=== PATIENT | female | born 1990 | race Caucasian/White ===

== ENCOUNTER 2017-11-27 08:42 | Emergency (ER) | payer SELFPAY ==
[2017-11-27 09:07] VITALS: BP 159/100
--- NOTE | 2017-11-27 09:35 | EDM.PDOC ---
ED HPI GENERAL MEDICAL PROBLEM - General Chief Complaint: Upper Extremity Injury/Pain Stated Complaint: RIGHT THUMB SWOLLEN Time Seen by Provider: 11/27/17 09:02 - History of Present Illness INITIAL COMMENTS - FREE TEXT/NARRATIVE: HISTORY AND PHYSICAL: History of present illness: The patient is a 27-year-old female who presents with 2 complaints regarding her hands; the first is that all the tips of her fingers are dry scaly and red and feel uncomfortable and the second is that she thinks that she has some fluid at the base of her right thumbnail that started last night. The patient states that she does bite her fingernails but not to an extreme and has no systemic complaints of fever chills nausea vomiting or diarrhea. She denies . She says she has not manipulated any of her fingers. She says that in the past she has had an episode of a contact reaction and did not realize that she had a latex allergy and I reviewed that chart of a urine half ago. She said she received prednisone at that time and it seemed to improve symptoms. She does not work with chemicals and has not been around any new products that she is aware of. She says that she went on the Internet and she looked things up and she is concerned about infection. Review of systems: As per history of present illness and below otherwise all systems reviewed and negative. Past medical history: As per history of present illness and as reviewed below otherwise noncontributory. Surgical history: As per history of present illness and as reviewed below otherwise noncontributory. Social history: No reported history of drug or alcohol abuse. Family history: As per history of present illness and as reviewed below otherwise noncontributory. Physical exam: General: Well-developed well-nourished female who is nontoxic and vital signs are reviewed by me HEENT: Atraumatic, normocephalic, negative for conjunctival pallor or scleral icterus, mucous membranes moist, throat clear, neck supple, nontender, trachea midline. Lungs: Clear to auscultation, breath sounds equal bilaterally, chest nontender. Heart: S1S2, regular rate and rhythm no overt murmurs Abdomen: Soft, nondistended, nontender. NABS Pelvis: Deferred Genitourinary: Deferred. Rectal: Deferred. Extremities: Atraumatic with full range of motion of all extremities with the exception of the distal calyces of all digits. At the soft tissue of the chente on all fingers there is diffuse ill-defined erythema and dry scaly skin and some irregular fingernails are seen. At the ulnar base of the right fingernail there is a small pinpoint area of fluctuance and tenderness with some erythema which does not involve the nailbed and there is no diffuse soft tissue swelling or erythema. The patient has full range of motion of all of the extremities and good cap refill. Neurovascular unremarkable. Neuro: Awake, alert, oriented. Cranial nerves II through XII unremarkable. Cerebellum unremarkable. Motor and sensory unremarkable throughout. Exam nonfocal. Diagnostics: [] Therapeutics: The patient and I discussed possible I&D of this very small area on her right thumb near the base of the nail and initially she had told triage that she was here to have it drained because she looked it up on the Internet but in my discussion with her she seemed more hesitant due to the discomfort. I told her that we could try a course of antibiotics as well as prednisone and Benadryl for the remainder of her symptoms on her other digits. Nursing went back into the room to re- offer her needle drainage of this very small area and she does not want to receive any more care from me at this time. She feels uncomfortable with my assessment. Please note that when I initially went into the room I thought that her concern was of all of the tips of her fingers and was focusing mostly on that ; she then became angry at me for not focusing on her right thumb in evaluation. She sharply told me that I was not looking at the infection that she is concerned about. After that point she seemed much more distant with our conversation. Again on my evaluation the area of her concern is very small and I offered her antibiotics and follow-up as she does not want the needle drainage I have offered. I've also told her that I would give her a burst of prednisone to help with the contact dermatitis of the remainder of her fingers. I advised taking Benadryl for the redness and discomfort of the remainder of her fingers. She then proceeded to ask me if I could give her something stronger than [id number] for pain management which I told her was not indicated at this time. She also seemed angry with nursing when she was told that she was not getting anything for pain other than Motrin or Tylenol. I will give her follow-up in our clinic I've advised her that if it worsens despite the therapy that she can return and be reevaluated. Impression: Contact dermatitis of the soft tissue chente of all digits, small paronychia right thumb Definitive disposition and diagnosis as appropriate pending reevaluation and review of above. Right 2-Index finger Pain Score (Numeric/FACES): 10 - Related Data Allergies Allergy/AdvReac Type Severity Reaction Status Date / Time Sulfa (Sulfonamide Allergy Intermediate Dizziness Verified 11/27/17 09:01 Antibiotics) Home Meds: Home Meds Ferrous Sulfate [Iron] 975 mg PO DAILY 07/15/16 [History] Zolpidem Tartrate [Ambien] 5 mg PO BEDTIME 07/15/16 [History] Lisinopril/Hydrochlorothiazide [Lisinopril-Hctz 20-12.5 mg Tab] 1 tab PO BID [History] Past Medical History - Past Health History Medical/Surgical History: Denies Medical/Surgical History Cardiovascular History: Reports: Hypertension Respiratory History: Reports: None Gastrointestinal History: Reports: None Genitourinary History: Reports: None [employer] History: Reports: Musculoskeletal History: Reports: None Neurological History: Reports: Head Trauma Other Neuro History: Patient describes, "hitting her head on a car door" in 2016. Psychiatric History: Reports: Anxiety Endocrine/Metabolic History: Reports: Hypothyroidism Hematologic History: Reports: Anemia - Infectious Disease History Infectious Disease History: Reports: None - Past Surgical History Female Surgical History: Reports: Section Social & Family History - Family History Family Medical History: Noncontributory Cardiac: Reports: Hypertension Neurological: Reports: CVA Endocrine/Metabolic: Reports: Diabetes, type II - Tobacco Use Smoking Status *Q: Current Every Day Smoker Years of Tobacco use: 13 Packs/Tins Daily: 0.5 - Caffeine Use Caffeine Use: Reports: Coffee, Tea - Recreational Drug Use Recreational Drug Use: No - Living Situation & Occupation Living situation: Reports: , with Family Occupation: Employed Review of Systems - Review of Systems Review Of Systems: ROS reveals no pertinent complaints other than HPI. ED EXAM, GENERAL - Physical Exam Exam: See Below (See dictation) Course - Vital Signs Last Recorded V/S: Last Vital Signs Temp 36.0 C 11/27/17 09:03 Pulse 98 08/22/18 09:03 Resp 14 11/27/17 09:03 BP 159/100 H 11/27/17 09:03 Pulse Ox 98 11/27/17 09:03 Departure - Departure Time of Disposition: 09:35 Disposition: Home, Self-Care 01 Condition: Good Clinical Impression: Paronychia of finger of right hand Contact dermatitis Qualifiers: Contact dermatitis type: unspecified Contact dermatitis trigger: unspecified trigger Qualified Code(s): L25.9 - Unspecified contact dermatitis, unspecified cause - Discharge Information Referrals: PCP,None [Primary Care Provider] - Additional Instructions: The following information is given to patients seen in the emergency department who are being discharged to home. This information is to outline your options for follow-up care. We provide all patients seen in our emergency department with a follow-up referral. The need for follow-up, as well as the timing and circumstances, are variable depending upon the specifics of your emergency department visit. If you don't have a primary care physician on staff, we will provide you with a referral. We always advise you to contact your personal physician following an emergency department visit to inform them of the circumstance of the visit and for follow-up with them and/or the need for any referrals to a consulting specialist. The emergency department will also refer you to a specialist when appropriate. This referral assures that you have the opportunity for followup care with a specialist. All of these measure are taken in an effort to provide you with optimal care, which includes your followup. Under all circumstances we always encourage you to contact your private physician who remains a resource for coordinating your care. When calling for followup care, please make the office aware that this follow-up is from your recent emergency room visit. If for any reason you are refused follow-up, please contact the [facility] emergency department at and ask to speak to the emergency department charge nurse. [facility] Primary care- [place] [address] Please take anabolic says directed and return to ER for drainage of the area if you feel that the antibiotic to not working and the area is worsening. Please try to refrain from biting her fingernails. These take [id number] Benadryl every 6 hours for the next 1-2 days to help with the discomfort of the other fingers and use [id number] Aquaphor as we discussed and cotton gloves to help moisturize the areas. Please also take the Medrol pack as prescribed. Please contact one of our clinic providers for reevaluation further care and return to ER as needed and as discussed
== END 2017-11-27 09:58 | disposition home or self-care (01) ==
LOC: MW.ED 08:42
DX: L03.011 Cellulitis of right finger (principal); L25.9 Unspecified contact dermatitis, unspecified cause; I10 Essential (primary) hypertension; Z88.2 Allergy status to sulfonamides; Z79.899 Other long term (current) drug therapy; F17.210 Nicotine dependence, cigarettes, uncomplicated
CPT/HCPCS: 99283

== ENCOUNTER 2017-12-25 12:44 | Emergency (ER) | payer OTHER ==
[2017-12-25] MEDS ORDERED: Lisinopril 10 MG Tab PO ONE (13:13)
--- NOTE | 2017-12-25 13:13 | EDM.PDOC ---
ED HPI GENERAL MEDICAL PROBLEM - General Chief Complaint: General Stated Complaint: MEDICAL CLEARANCE Time Seen by Provider: 12/25/17 13:13 Source of Information: Reports: Patient History Limitations: Reports: No Limitations - History of Present Illness INITIAL COMMENTS - FREE TEXT/NARRATIVE: HISTORY AND PHYSICAL: History of present illness: Patient is a 27-year-old female accompanied by credit products officer here for high blood pressure. Patient was placed under arrest today. Patient states she has been off of her anti-hypertensive for 2 months. She states that this morning her eyes became blurry on and off, having chest pain, and feeling short of breath. She denies any nausea, vomiting, headache, diarrhea, abdominal pain, fevers, chills. Patient smokes 1/2 ppd x 13 years as well as using meth and marijuana. Patient reports a history of iron deficiency anemia. Review of systems: As per history of present illness and below otherwise all systems reviewed and negative. Past medical history: As per history of present illness and as reviewed below otherwise noncontributory. Surgical history: As per history of present illness and as reviewed below otherwise noncontributory. Social history: No reported history of drug or alcohol abuse. Family history: As per history of present illness and as reviewed below otherwise noncontributory. Physical exam: General: Patient sitting comfortably in no acute distress and nontoxic appearing HEENT: Atraumatic, normocephalic, pupils reactive, negative for conjunctival pallor or scleral icterus, mucous membranes moist, throat clear, neck supple, nontender, trachea midline. No meningeal signs. Lungs: Clear to auscultation, breath sounds equal bilaterally, chest nontender. Heart: S1S2, regular, negative for clicks, rubs, or overt murmur. Abdomen: Soft, nondistended, nontender. Negative for masses or hepatosplenomegaly. Negative for costovertebral tenderness. Pelvis: Stable nontender. Genitourinary: Deferred. Rectal: Deferred. Extremities: Atraumatic, negative for cords or calf pain. Neurovascular unremarkable. Neuro: Awake, alert, oriented. Cranial nerves II through XII unremarkable. Cerebellum unremarkable. Motor and sensory unremarkable throughout. Exam nonfocal. Notes: 1430 - Patient's blood pressure improved to 153/101. Patient reports she no long has chest pain or SOB. Advised to follow up with her primary care provider regarding anemia. Diagnostics: CBC, CMP, troponin, EKG Therapeutics: Lisinopril 20mg, HCTZ 12.5mg Prescriptions: Lisinipril - HCTZ Impression: Hypertension, medical clearance Plan: 1. Take medications as instructed. 2. Follow up with primary care provider 3. Return to ED as needed as discussed Definitive disposition and diagnosis as appropriate pending reevaluation and review of above. - Related Data Allergies Allergy/AdvReac Type Severity Reaction Status Date / Time Sulfa (Sulfonamide Allergy Intermediate Dizziness Verified 12/25/17 12:49 Antibiotics) Home Meds: Home Meds Ferrous Sulfate [Iron] 975 mg PO DAILY 07/15/16 [History] Zolpidem Tartrate [Ambien] 5 mg PO BEDTIME PRN 07/15/16 [History] Lisinopril/Hydrochlorothiazide [Lisinopril-Hctz 20-12.5 mg Tab] 1 tab PO BID [History] Lisinopril/Hydrochlorothiazide [Lisinopril-Hctz 20-12.5 mg Tab] 1 each PO DAILY 30 Days #30 tablet 12/25/17 [Rx] Past Medical History - Past Health History Medical/Surgical History: Denies Medical/Surgical History Cardiovascular History: Reports: Hypertension Respiratory History: Reports: None Gastrointestinal History: Reports: None Genitourinary History: Reports: None 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 Psychiatric History: Reports: Anxiety Endocrine/Metabolic History: Reports: Hypothyroidism Hematologic History: Reports: Anemia, Other (See Below) Other Hematologic History: Pica - Infectious Disease History Infectious Disease History: Reports: None - Past Surgical History Female Surgical History: Reports: Section Social & Family History - Family History Family Medical History: Noncontributory Cardiac: Reports: Hypertension Neurological: Reports: CVA Endocrine/Metabolic: Reports: Diabetes, type II - Tobacco Use Smoking Status *Q: Current Every Day Smoker Years of Tobacco use: 13 Packs/Tins Daily: 0.5 - Caffeine Use Caffeine Use: Reports: Coffee - Recreational Drug Use Recreational Drug Use: Yes Drug Use in Last 12 Months: Yes Recreational Drug Type: Reports: Marijuana/Hashish, Methamphetamine Recreational Drug Use Frequency: Daily - Living Situation & Occupation Living situation: Reports: , with Family Occupation: Employed ED ROS GENERAL - Review of Systems Review Of Systems: ROS reveals no pertinent complaints other than HPI. ED EXAM, GENERAL - Physical Exam Exam: See Below (see dictation) Course - Vital Signs Last Recorded V/S: Last Vital Signs Temp 35.8 C 12/25/17 12:47 Pulse 93 12/25/17 12:47 Resp 16 12/25/17 12:47 BP 145/103 H 12/25/17 13:59 Pulse Ox 100 12/25/17 12:47 - Orders/Labs/Meds Orders: Active Orders 24 hr Category Date Time Status EKG Documentation Completion [RC] STAT Care 12/25/17 13:01 Active hydroCHLOROthiazide Med 12/26/17 13:15 Once 12.5 mg PO ONETIME ONE Medication Orders Hydrochlorothiazide (Hydrochlorothiazide) 12.5 mg PO ONETIME ONE Stop: 12/26/17 13:16 Last Admin: 12/25/17 13:28 Dose: 12.5 mg Labs: Laboratory Tests 12/25/17 12/25/17 Range/Units 13:30 13:30 WBC 8.35 (4.0-11.0) K/uL RBC 4.54 (4.30-5.90) M/uL Hgb 8.8 L (12.0-16.0) g/dL Hct 30.5 L (36.0-46.0) % MCV 67.2 L (80.0-98.0) fL MCH 19.4 L (27.0-32.0) pg MCHC 28.9 L (31.0-37.0) g/dL RDW Std Deviation 47.6 (28.0-62.0) fl RDW Coeff of Laquita 20 H (11.0-15.0) % Plt Count 400 (150-400) K/uL MPV 9.60 (7.40-12.00) fL Neut % (Auto) 76.9 (48.0-80.0) % Lymph % (Auto) 13.4 L (16.0-40.0) % [place] % (Auto) 8.0 (0.0-15.0) % Eos % (Auto) 1.1 (0.0-7.0) % Baso % (Auto) 0.6 (0.0-1.5) % Neut # (Auto) 6.4 H (1.4-5.7) K/uL Lymph # (Auto) 1.1 (0.6-2.4) K/uL [place] # (Auto) 0.7 (0.0-0.8) K/uL Eos # (Auto) 0.1 (0.0-0.7) K/uL Baso # (Auto) 0.1 (0.0-0.1) K/uL Nucleated RBC % 0.0 /100WBC Nucleated RBCs # 0 K/uL Sodium 138 (136-145) mmol/L Potassium 3.3 L (3.5-5.1) mmol/L Chloride 101 (98-107) mmol/L Carbon Dioxide 24.7 (21.0-32.0) mmol/L BUN 14 (7.0-18.0) mg/dL Creatinine 0.3 L (0.6-1.0) mg/dL Est Cr Clr Drug Dosing 220.81 mL/min Estimated GFR (MDRD) > 60.0 ml/min Glucose 84 (74-106) mg/dL Calcium 9.5 (8.5-10.1) mg/dL Total Bilirubin 0.5 (0.2-1.0) mg/dL AST 19 (15-37) IU/L ALT 24 (14-63) IU/L Alkaline Phosphatase 100 (46-116) U/L Troponin I < 0.050 (0.000-0.056) ng/mL Total Protein 8.1 (6.4-8.2) g/dL Albumin 4.2 (3.4-5.0) g/dL Globulin 3.9 H (2.0-3.5) g/dL Albumin/Globulin Ratio 1.1 L (1.3-2.8) Meds: Medications Generic Name Dose Route Start Last Admin Trade Name Freq PRN Reason Stop Dose Admin Hydrochlorothiazide 12.5 mg 12/26/17 13:15 12/25/17 13:28 Hydrochlorothiazide PO 12/26/17 13:16 12.5 mg ONETIME ONE Administration Discontinued Medications Generic Name Dose Route Start Last Admin Trade Name Freq PRN Reason Stop Dose Admin Lisinopril 20 mg 12/25/17 13:13 12/25/17 13:27 Prinivil PO 12/25/17 13:14 20 mg ONETIME ONE Administration Departure - Departure Time of Disposition: 14:30 Disposition: Home, Self-Care 01 Condition: Good Clinical Impression: Hypertension, Medical clearance for incarceration - Discharge Information Referrals: PCP,None [Primary Care Provider] - Forms: ED Department Discharge Additional Instructions: The following information is given to patients seen in the emergency department who are being discharged to home. This information is to outline your options for follow-up care. We provide all patients seen in our emergency department with a follow-up referral. The need for follow-up, as well as the timing and circumstances, are variable depending upon the specifics of your emergency department visit. If you don't have a primary care physician on staff, we will provide you with a referral. We always advise you to contact your personal physician following an emergency department visit to inform them of the circumstance of the visit and for follow-up with them and/or the need for any referrals to a consulting specialist. The emergency department will also refer you to a specialist when appropriate. This referral assures that you have the opportunity for follow-up care with a specialist. All of these measure are taken in an effort to provide you with optimal care, which includes your follow-up. Under all circumstances we always encourage you to contact your private physician who remains a resource for coordinating your care. When calling for follow-up care, please make the office aware that this follow-up is from your recent emergency room visit. If for any reason you are refused follow-up, please contact the [facility] Emergency Department at and asked to speak to the emergency department charge nurse. [facility] Primary Care [address] [place] [address] [id number] [address] [address] 1. Take medications as instructed. 2. Follow up with primary care provider 3. Return to ED as needed as discussed - My Orders Last 24 Hours: My Active Orders 12/25/17 13:01 EKG Documentation Completion [RC] STAT 12/26/17 13:15 hydroCHLOROthiazide 12.5 mg PO ONETIME ONE - Assessment/Plan Last 24 Hours: My Active Orders 12/25/17 13:01 EKG Documentation Completion [RC] STAT 12/26/17 13:15 hydroCHLOROthiazide 12.5 mg PO ONETIME ONE
[2017-12-25 14:12] LABS: CHLORIDE,CL 101 mmol/L (98-107); SODIUM,NA 138 mmol/L (136-145)
[2017-12-25 14:26] VITALS: BP 152/101
[2017-12-26] MEDS ORDERED: Hydrochlorothiazide 12.5 MG Cap PO ONE (13:15)
== END 2017-12-25 14:48 | disposition home or self-care (01) ==
LOC: MW.ED 12:44
DX: I10 Essential (primary) hypertension (principal); E03.9 Hypothyroidism, unspecified; F17.210 Nicotine dependence, cigarettes, uncomplicated; Z88.2 Allergy status to sulfonamides
CPT/HCPCS: 36415; 80053; 84484; 85025; 93005; 99284; A9270; 99283

== ENCOUNTER 2018-01-10 20:28 | Emergency (ER) | payer OTHER ==
[2018-01-10] MEDS ORDERED: Ketorolac 60 MG/2 ML SDV IM ONE (21:22)
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
[2018-01-10 23:15] VITALS: BP 119/70
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
== END 2018-01-10 22:40 ==
LOC: MW.ED 20:28
DX: S09.90XA Unspecified injury of head, initial encounter (principal); S05.10XA Contusion of eyeball and orbital tissues, unspecified eye, initial encounter; I10 Essential (primary) hypertension; F17.210 Nicotine dependence, cigarettes, uncomplicated; Z88.2 Allergy status to sulfonamides; Z91.040 Latex allergy status; Y04.0XXA Assault by unarmed brawl or fight, initial encounter
CPT/HCPCS: 70450; 70486; 96372; 99284; J1885; 99283

== ENCOUNTER 2018-11-14 22:20 | Emergency (ER) | payer MEDICAID ==
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
[2018-11-14] MEDS ORDERED: Lisinopril/Hydrochlorothiazide 10-12.5 MG Tab PO ONE (22:44)
[2018-11-14 23:16] VITALS: BP 120/72; PULSE 89
== END 2018-11-14 23:00 ==
LOC: MW.ED 22:20
DX: I10 Essential (primary) hypertension (principal); Z91.040 Latex allergy status; Z88.2 Allergy status to sulfonamides; Z79.899 Other long term (current) drug therapy; Z86.2 Personal history of diseases of the blood and blood-forming organs and certain disorders involving the immune mechanism
CPT/HCPCS: 99283; A9270